=== PATIENT | male | born 1945 ===

== ENCOUNTER 2025-01-30 09:11 | Emergency (ER) | payer OTHER ==
[2025-01-30] MEDS: Ketorolac 30 MG/ML SDV IM ONE (10:09)
[2025-01-30] MEDS: Take Home: Cyclobenzaprine 10 MG Tab, 4 Tab Pack PO ONE (10:58)
== END 2025-01-30 11:01 | disposition home or self-care (01) ==
LOC: DL.ED 09:11
DX: M62.838 Other muscle spasm (principal); I10 Essential (primary) hypertension; E11.9 Type 2 diabetes mellitus without complications
CPT/HCPCS: 96372; 99283; A9270; J1885